=== PATIENT | female | born 1940 | race Caucasian/White ===

== ENCOUNTER 2020-09-24 09:48 | Day surgery (SDC) | payer MEDICARE ==
[~2020-09-24] VITALS: Ht 162.6 cm; Wt 47.7 kg
[2020-09-24 10:30] LABS: BASOPHILS 0.4 % (0-2); EOSINOPHILS 0.3 % (0-7); HEMATOCRIT 44.2 % (36.0-48.0); HEMOGLOBIN 14.4 g/dL (12-16); IMMATURE GRANULOCYTES 0.1 % (0-5); LYMPHOCYTE ABS# 0.86 10x3/uL (1.18-3.74); LYMPHOCYTES 11.2 % (15-50); MCH 29.5 pg (26.0-34.0); MCHC 32.6 g/dL (31.0-37.0); MCV 90.6 fL (80.0-100.0); MEAN PLATELET VOLUME 10.2 fL (7.4-10.4); MONOCYTES 5.3 % (2-11); NEUTROPHIL ABS# 6.35 10x3/uL (1.56-6.13); NEUTROPHILS 82.7 % (40-80); PLATELET COUNT 310 10x3/uL (130-400); RBC 4.88 10x6/uL (4.00-5.40); WBC 7.7 10x3/uL (4.8-10.8)
[2020-09-24 10:47] LABS: CALCIUM 9.9 mg/dL (8.5-10.1); CARBON DIOXIDE 21.7 mmol/L (21.0-32.0); CREATININE - SERUM 1.1 mg/dL (0.6-1.3)
[2020-09-24 10:53] LABS: ANION GAP 19.7 mmol/L (8-16); POTASSIUM - SERUM 4.4 mmol/L (3.5-5.1)
[2020-09-24 11:22] VITALS: BP 130/74; Ht 162.6 cm; Wt 47.7 kg
--- NOTE | 2020-09-24 15:43 | NUR ---
1318 IV DC'D. CATHETER TIP INTACT. NO BLEEDING, SWELLING OR REDNESS AT SITE. COBAN DRESSING APPLIED. 1330 PT IS DRESSED AND READY FOR DISCHARGE. PT VOICES UNDERSTANDING OF DISCHARGE INSTRUCTIONS THAT WERE REVIEWED WITH HER.
--- NOTE | 2020-09-24 16:57 | OP ---
PATIENT NAME: ETHAN SEWELL MEDICAL RECORD: [id number] :40 LOCATION:[facility] ADMISSION DATE: SURGEON: EDMUNDO KILLIAN MD DATE OF OPERATION: 09/24/2020 PREOPERATIVE DIAGNOSIS: Positive fecal occult blood test. MEDICATIONS: Propofol per anesthesia. PROCEDURE: Colonoscopy was performed. DESCRIPTION OF PROCEDURE: The colonoscope was inserted through the rectum and advanced to the cecum, identified by the ileocecal valve and the appendiceal orifice. The quality of the prep was good. There were multiple sigmoid diverticula visualized. In the sigmoid colon and the descending colon, there were small nonbleeding internal hemorrhoids visualized. The remainder of the exam was normal. The patient tolerated the procedure well. FINAL DIAGNOSES: Multiple sigmoid and descending colon diverticula, small nonbleeding internal hemorrhoids. PLAN: Advance diet, fiber supplements. Return to GI office. TRANSINT:[id number] Voice Confirmation ID: [id number] DOCUMENT ID: [id number] EDMUNDO KILLIAN MD at 1657 CC: [id number] DICTATION DATE: 09/24/20 1217 GI ASST: 09/24/20 1325 [facility] 09/24/20 [id number] [place] [address]
== END 2020-09-24 13:30 | disposition home or self-care (01) ==
LOC: D.OPS 09:48
PROVIDERS: Anesthesiology; ATTEND Internal Medicine Gastroenterology
DX: R19.5 Other fecal abnormalities (principal); K64.8 Other hemorrhoids; K57.30 Diverticulosis of large intestine without perforation or abscess without bleeding